=== PATIENT | male | born 1955 | race Caucasian/White ===

== ENCOUNTER → 2018-03-26 17:09 | Outpatient (CLI) | payer OTHER, SELFPAY ==
--- NOTE | 2018-03-26 | DI.MRI.S_ITS ---
PROCEDURE: MR ANKLE LT WO CON INDICATIONS: ACUTE LATERAL LEFT ANKLE PAIN AND INSTABILITY TECHNIQUE: Noncontrast sagittal T1 spin echo and T2 fast spin echo with fat saturation, axial proton density fast spin echo and T2 fast spin echo with fat saturation, coronal T1 spin echo and T2 fast spin echo with fat saturation through the ankle/hindfoot. COMPARISON: [facility] [place], CR, XR ANKLE 3+ VIEWS LEFT, 03/14/2018, 8:14. [facility], MR, MR ANKLE LT WO CON, 11/30/2017, 17:57. FINDINGS: Image quality: Diagnostic. Bones and joints: There is no acute fracture, dislocation, or suspicious osseous lesion identified involving the osseous structures of the midfoot or hindfoot. There are are moderate degenerative changes of the tibiotalar joint. No definite osteochondral fragments are identified. However, there is irregularity of articular cartilage of the tibial plafond to the talar dome with reactive/degenerative marrow changes, best appreciable on the posterior margin of the tibiotalar joint. There are mild degenerative changes noted involving the subtalar joints. There are moderate degenerative changes of the tarsonavicular joints. There are moderate to severe degenerative changes involving the tarsometatarsal joints. Diffuse marrow edema is present involving the proximal aspects of the 4th and 5th metatarsals. No suspicious osseous lesions are identified. No significant joint effusions are evident. There is a moderate sized bony protuberance along the lateral margin of the calcaneus with associated marrow edema. 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 Medial structures: The deltoid ligament is irregular, but is intact with thickening and increased signal is identified involving the superomedial band of the spring ligament. This appearance is similar to the prior exam. There is increased signal noted involving the tibialis posterior tendon near the level of the navicular. No significant change is evident. The flexor hallucis longus and flexor digitorum longus tendons are intact. The posterior tibial nerve to the region of the tarsal tunnel appears to be normal in size. Lateral structures: The anterior distal tibiofibular ligament is irregular, but intact. The posterior distal tibiofibular ligament is also intact. There is thickening and heterogeneity noted involving the anterior talofibular ligament. There is increased signal of the calcaneofibular ligament without a definitive full thickness tear evident. There likely is partial thickness tear. The posterior talofibular ligament is intact. There is marked thickening and diffuse increased signal identified involving the peroneus longus tendon with a moderate grade intrasubstance longitudinal split tear extending from about the level of the tip of the lateral malleolus to at least the level of the calcaneus and likely extending to the base of the 1st metatarsal. The peroneus brevis tendon also is noted to demonstrate increased signal and is noted to be flattened. There is fluid contained within their corresponding tendon sheaths. Incidental note is made of peroneus quartus with corresponding tendon edema. There is prominent edema about the lateral aspect of the ankle. Mild edema is noted within the sinus tarsi. Clinical correlation to exclude sinus tarsi syndrome is recommended. Anterior structures: The tibialis anterior and the extensor hallucis longus tendons are intact and grossly unremarkable. There is thickening and increased signal involving the extensor digitorum longus tendons with fluid contained within their corresponding tendon sheaths. Posterior and plantar structures: Achilles tendon is intact. However, there is increased signal involving the Achilles tendon. Medial and lateral bands of the plantar fascia are of normal thickness. IMPRESSION: 1. Long segment longitudinal split tear of the peroneus longus tendon with corresponding severe tendinopathy and reactive tenosynovitis may be related to a large bony protuberance along the lateral border of the talus. Please correlate clinically. 2. Peroneus brevis and peroneus quartus tendinopathy. 3. Partial-thickness tearing and associated sprain of the calcaneofibular ligament. There likely is scarring of the anterior talofibular ligament and anterior distal tibiofibular ligament. 4. Mild tibialis posterior tendinopathy. 5. Scarring of the deltoid ligament and the spring ligament. 6. Mild extensor digitorum longus tendinopathy. 7. Achilles tendinopathy. 8. Moderate degenerative changes throughout the midfoot and hindfoot are similar to the prior study. 9. Increasing marrow edema involving the 4th and 5th metatarsal bases may be related to stress reaction. Dictated by: Matthew Vasquez M.D. on 03/27/2018 at 15:21 Approved by: Matthew Vasquez M.D. on 03/27/2018 at 15:39
== END ==
PROVIDERS: Family Provider Internal Medicine; PCP Internal Medicine; Visit Provider Podiatrist
DX: M25.572 Pain in left ankle and joints of left foot (principal); S86.312A Strain of muscle(s) and tendon(s) of peroneal muscle group at lower leg level, left leg, initial encounter; M65.872 Other synovitis and tenosynovitis, left ankle and foot; S93.412A Sprain of calcaneofibular ligament of left ankle, initial encounter; M19.072 Primary osteoarthritis, left ankle and foot
CPT/HCPCS: 73721

== ENCOUNTER → 2018-04-15 08:42 | Outpatient (CLI) | payer OTHER, SELFPAY ==
[2018-04-15 09:52] LABS: BUN Creatinine Ratio 12.9 (6-22); Blood Urea Nitrogen 18 mg/dL (9-20); Calcium 9.1 mg/dL (8.4-10.2); Carbon Dioxide 28 mmol/L (22-32); Chloride 101 mmol/L (98-107); Estimated Glomerular Filt Rate 51.5 mL/min (>60); Glucose 100 mg/dL (80-110); HEMOLYSIS 15 (0-50); Potassium 4.2 mmol/L (3.4-5.1); Sodium 142 mmol/L (137-145)
== END ==
PROVIDERS: PCP Internal Medicine; Visit Provider Physician Assistant
DX: Z01.818 Encounter for other preprocedural examination (principal); M19.072 Primary osteoarthritis, left ankle and foot
CPT/HCPCS: 36415; 80048; 93005

== ENCOUNTER 2018-04-19 06:34 | Day surgery (SDC) | payer OTHER, SELFPAY ==
[2018-04-10 13:13] VITALS: BMI 26.8
[2018-04-19] VITALS (8 sets, daily range): BP systolic 121–167; BP diastolic 83–110; PULSE 67–78; RESP 15–20; TEMP 36.2–36.8; O2SAT 95–97; BMI 25.4
[2018-04-19] MEDS: LACTATED RINGERS 1,000 ML 42 ML IV ×2 (06:55→09:03)
[2018-04-19] MEDS: CLINDAMYCIN 600 MG/50 ML PIGGYBACK 50 MG IV (07:44)
--- NOTE | 2018-04-19 07:45 | PM.PREOP ---
Pre-operative Note Interval Note Pre-op Check: Yes History & Physical Reviewed by Physician Changes: No
--- NOTE | 2018-04-19 08:17 | SUR.OPER ---
Supine on padded OR bed, head on pillow, arms secured on padded arm boards at <90 degrees abduction, legs uncrossed, safety belt at thigh, tape over blanket over right lower leg
[2018-04-19] MEDS: BUPIVACAINE 0.5% (PF) VIAL 30 ML INJ (08:26)
[2018-04-19] MEDS: HYDRALAZINE 20 MG/ML VIAL 5 MG IV (10:34)
[2018-04-19] MEDS: OXYCODONE/ACETAMINOPHEN 5/325 TABLET 1 TAB PO (11:04)
--- NOTE | 2018-04-19 11:28 | PM.OP.1 ---
Operative Date/Time/Diagnoses Date of procedure: 04/19/18 Time of procedure: 11:28 Pre-op diagnosis: Left peroneal tendon tear lateral ankle instability possible ankle spur Post-op diagnosis: same Procedure & Clinicians Procedure: 1. Left lateral ankle stabilization with CFL repair and anchor system 2. Peroneal tendon debridement and repair 3. Reduction ankle exostosis with bone cyst fill Indications: Painful unstable left lateral ankle. Conservative measures failed to alleviate his pain and he wished to have surgical intervention this time. We spoke the risks, potential complications, and expected outcomes. Consent was signed, no contraindication to the procedures at this time. Surgeon: Cordelia Lagunas Click Yes if Unassisted: Yes Anesthesia Type: General Operative Notes Closure Type: primary Specimen(s): none sent Implants & Drains: Arthrex InternalBrace anchor system 1cc DBM bone putty 3-0 Ticron 3-0 Vicryl 3-0 Nylon Estimated Blood Loss (mL): 30 Blood products transfused: none Tourniquet time (min): 87 Procedure in detail: The patient was brought to the operating room and placed on the operating table in the supine position tourniquet was placed about the left thigh. Well padded appropriately aligned. After induction of general anesthesia the foot and ankle were prepped and draped in the usual aseptic manner. The tourniquet was inflated. After check of anesthesia and incision was made over the anterolateral ankle at the level of the suspected ATFL into the lateral malleolus. The incision was deepened through subcutaneous tissues being careful to identify and retract all vital neural and vascular structures. All bleeders were cauterized and ligated as necessary. The ATFL was noted after the retinaculum was taken down and shown to be a little attenuated but actually really strong and no significant tears. Next dissection was carried over to the more lateral ankle where the peroneal tendon complex was noted to be enlarged. This is a marked where he was having the most pain and also where we suspected the underlying bony prominence to be. The peroneus brevis was very large and thick about 3-4 times the size of it is normal and the longus was also present but not significantly damaged. This was at the level of the lateral malleolus and extending a little proximally but mostly a little bit more distally. It appeared that there had been a tear posteriorly that had healed up but this still left areas of thickened scar tissue throughout. Underlying both of these was noted to be the calcaneal fibular ligament. This was not showing necessarily a tear but it was not very thick and looked pretty redundant. The decision was made to repair the peroneal tendon and reduce some of its bulk allowing it to be more fluid as well as placed the anchor system across the CFL. Following the standard technique the drill was placed in the fibular component and anchor in the then the 2nd anchor location was placed in the calcaneal component. Once the appropriate amount of tension was noted then the anchor was placed. This was a good amount of tension and I was happy with the amount of strength instability on inversion I noted. Any excessive fiber tape was removed. The peroneal tendon was then reduced of its bulk and some of it is excessive scar tissue and smoothed. Underlying this was noted the prominent spur. I used a rongeur for little of it and then I was able to smooth some of it down with a rasp. It very easily created an opening and ID found that this area actually was a small bone cyst and there was a void. Once that was noted I was able to tamp down lately the thin edges of it and then back fill it with the DBM bone putty. This then was not nearly as prominent and allowed the tendon to flow over this better. Just prior to this the area had been irrigated with copious amounts of normal sterile saline the peroneal tendon sheath was repaired as the tourniquet was deflated. Was repaired with Vicryl and Tycron was used for some of the retinaculum. Subcutaneous tissue was closed using Vicryl and nylon to the skin. Sterile lightly compressive dressing was placed on the foot and ankle and he was transferred to the PACU with vital signs stabl.e Complications: none Condition: stable Disposition: PACU Plan for aftercare: Following a period of postoperative monitoring the patient will be discharged home on written and oral postoperative instructions including keeping the dressing dry and intact. No ambulation to the foot for approximately 3-4 weeks. This will be based on his recovery as well as we will get a new set of x-rays as he comes in to his 3rd week. The boot that he brought was a short boot and not adequate for the size of his ankle repair so an attempt was made to place him in an ankle boot here at the hospital but they did not have the correct size. His stated that she has had problems getting the boot in the past and he ended up having to purchase it. I offered suggestions on how our office may aid them in sizes for them to purchase and she understands but prefers to purchase on her own. Lovenox will be started tomorrow for a short course of 10 days instructions and safety measures are given. Tylenol 3 has been taken in the past and he is given this again as postoperative pain management with safety instructions. His 1st dressing change will come and he stated at that time he needed note for a work release. Likely the sutures will be removed closer to the 3rd week. At that time we will get an x-ray to check his heel and ankle and please start further weight-bearing closer to the 4th week.
== END 2018-04-19 11:46 | disposition home or self-care (01) ==
PROVIDERS: Family Provider Internal Medicine; PCP Internal Medicine; Visit Provider Podiatrist
PROC: (CPT 27695; principal; 2018-04-19 07:45)
DX: M76.72 Peroneal tendinitis, left leg (principal); M25.372 Other instability, left ankle; M77.32 Calcaneal spur, left foot; M19.072 Primary osteoarthritis, left ankle and foot; N18.3 Chronic kidney disease, stage 3 (moderate); M17.0 Bilateral primary osteoarthritis of knee; Z79.899 Other long term (current) drug therapy
CPT/HCPCS: 27695; 27675; 28100; J0360; J1100; J2405; J2704; J3010

== ENCOUNTER → 2020-04-07 12:30 | Outpatient (CLI) | payer OTHER, SELFPAY | PROVIDERS: Family Provider Internal Medicine; PCP Nurse Practitioner; Referring Provider Orthopaedic Surgery; Visit Provider Orthopaedic Surgery | DX: Z01.818 Encounter for other preprocedural examination (principal) | CPT/HCPCS: 93005 ==